=== PATIENT | male | born 1995 | race Hispanic/Latino ===

== ENCOUNTER 2024-11-17 19:39 | Emergency (ER) | payer BC ==
[~2024-11-17] VITALS: Ht 175.3 cm; Wt 70.3 kg
--- NOTE | 2024-11-17 20:28 | HMCIMG ---
PORTABLE CHEST RADIOGRAPH INDICATION: sob COMPARISON: None FINDINGS: Heart size is normal. The pulmonary vascularity and igor appear normal. No abnormal pulmonary parenchymal opacity or consolidation identified. No significant pleural effusion noted. No pneumothorax detected. IMPRESSION: No radiographic evidence for any acute cardiopulmonary process.
[2024-11-17 20:37] LABS: ADD UA MICROSCOPIC YES; APPEARANCE,URINE CLEAR (CLEAR); BILIRUBIN,URINE NEGATIVE (NEGATIVE); COLOR,URINE COLORLESS (YELLOW); GLUCOSE, URINE (UA) >=1000 mg/dL (NEGATIVE); KETONES,URINE 10 mg/dL (NEGATIVE); LEUKOCYTE ESTERASE ,URINE NEGATIVE Leu/uL (NEGATIVE); NITRATE,URINE NEGATIVE (NEGATIVE); OCCULT BLOOD,URINE NEGATIVE (NEGATIVE); PROTEIN,URINE NEGATIVE (NEGATIVE); UROBILINOGEN,URINE 0.2 mg/dL (0.2-1.0)
[2024-11-17 20:38] LABS: MUCUS,URINE RARE LPF (None Seen); SQUAMOUS EPITHELIAL CELL,UR RARE /HPF (0-2); YEAST,URINE BUDDING RARE /HPF (None Seen)
[2024-11-17 20:46] LABS: BASOPHILS # (AUTO) 0.03 K/uL (0.00-0.20); BASOPHILS % (AUTO) 0.4 % (0.0-5.0); EOSINOPHILS % (AUTO) 1.2 % (0.0-8.0); HEMATOCRIT 40.4 % (42-54); IMMATURE GRANULOCYTE ABSOLUTE 0.06 K/uL (0-1); LYMPHOCYTES # (AUTO) 3.5 K/uL (1.0-4.8); LYMPHOCYTES % (AUTO) 41.7 % (21.0-51.0); MEAN CORPUSCULAR HEMOGLOBIN 34.1 pg (27.0-33.0); MEAN CORPUSCULAR HGB CONC 34.4 g/dL (32.0-36.0); MONOCYTES # (AUTO) 0.9 K/uL (0.1-1.0); MONOCYTES % (AUTO) 10.9 % (3.0-13.0); NEUTROPHILS # (AUTO) 3.8 K/uL (1.8-7.7); NEUTROPHILS % (AUTO) 45.1 % (40.0-77.0); PLATELET COUNT (AUTO) 275 K/uL (130-400); RED BLOOD CELL COUNT(AUTO) 4.08 MIL/uL (4.50-6.20); RED CELL DISTRIBUTION WIDTH 12.1 % (11.0-15.5); WHITE BLOOD COUNT (AUTO) 8.4 K/uL (4.8-10.8)
[2024-11-17 20:51] LABS: CREATININE 0.7 mg/dL (0.5-1.3); POTASSIUM 4.2 mmol/L (3.5-5.1)
[2024-11-17 20:56] LABS: ALBUMIN 3.4 g/dL (3.5-5.0); BILIRUBIN,DIRECT 0.1 mg/dL (0.0-0.3); BILIRUBIN,TOTAL 0.3 mg/dL (0.2-1.0); TOTAL PROTEIN, SERUM 6.7 g/dL (6.0-8.3)
--- NOTE | 2024-11-17 21:19 | ERN ---
General Chief Complaint: Blood Sugar Problem Stated Complaint: DIABETES PROB Time Seen by MD: 19:40 Time Seen by Midlevel: 19:40 Source: patient History of Present Illness Initial Comments Patient is a 29-year-old male with a past medical history of type 1 diabetes presenting to the emergency department with hypoglycemia. Patient states he manage his diabetes with the long-acting insulin that he usually takes every night before bed and a short-acting insulin that he takes after meal was that for the last 2-3 days he has been eating healthier than usual. Today after his meal he injected normal amount of units usually does 25 units. Shortly after his glucose dropped to the 40s. He was given juice and candy at home but girlfriend decided to bring him in for further evaluation. Allergies: Coded Allergies: No Known Drug Allergies (Unverified Allergy, Unknown, 11/17/24) Past Medical History Past Medical History: Diabetes-Type II Past Surgical History: None ROS Dictation CONSTITUTIONAL: Negative except for HPI HEAD/FACE: Negative except for HPI EENT: Negative except for HPI RESPIRATORY: Negative except for HPI GASTROINTESTINAL/ABDOMINAL: Negative except for HPI GENITOURINARY: Negative except for HPI MUSCULOSKELETAL: Negative except for HPI INTEGUMENTARY: Negative except for HPI NEUROLOGICAL/PSYCH: Negative except for HPI HEMATOLOGIC/LYMPHATIC: Negative except for HPI All Systems Negative, Except as noted above. 13 point review of systems assessed and all negative except for above. Physical Exam Physical Exam Dictation Vital Signs reviewed General Appearance: Alert, oriented x 3, no acute distress, well developed, nourished. Head and Face: non-traumatic. Eyes: PERRL, pink conjunctivas, eyelid no trauma, anterior chamber with arcus senilis. Ears: Pinnas intact and no signs of trauma or erythema ear canals clear and no discharge TM no erythema Nose: No discharge, no bleeding. Oropharynx: Mouth normal, tongue pink, pharynx clear,no erythema, tonsils no exudates, no abscesses noted, mucous membrane moist Neck: Supple, non-tender, no thyromegaly, no masses, no JVD, no bruits Breast:Deferred Chest:No tenderness, no crepitus, no paradoxical movement, no retractions Lungs:Clear, well-ventilated, symmetric, no rales, no wheezing, no rhonchi, no stridor, good breath sounds bilaterally Heart: Regular rate, regular rhythm, no murmur, no gallops Vascular: no peripheral edema, Abdomen: Soft, positive bowel sounds, nondistended, no guarding, nontender, no rebound, no masses no hepatomegaly, no splenomegaly, no Fernando's sign, no hernias. Rectal: Deferred Genital: Deferred Neurological: Normal speech, motor function intact, sensory function intact Musculoskeletal: Neck nontender, full range of motion, back nontender, full r danny of motion, Extremities: nontender, full range of motion Skin: Color pink, dry, no turgor, no rash, no lacerations, no abrasions, no contusions. Lymphatic: Deferred Results Laboratory and Microbiology Lab and Micro Result Laboratory Tests Test 11/17/24 20:05 11/17/24 20:30 Urine Color COLORLESS (YELLOW) Urine Appearance CLEAR (CLEAR) Urine pH 7.0 (5.0-8.0) Urine Specific [place] 1.033 (1.001-1.031) Urine Protein NEGATIVE mg/dL (NEGATIVE) Urine Glucose (UA) >=1000 mg/dL (NEGATIVE) H Urine Ketones 10 mg/dL (NEGATIVE) H Urine Occult Blood NEGATIVE (NEGATIVE) Urine Nitrate NEGATIVE (NEGATIVE) Urine Bilirubin NEGATIVE mg/dL (NEGATIVE) Urine Urobilinogen 0.2 mg/dL (0.2-1.0) Urine Leukocyte Esterase NEGATIVE Ara/uL Urine RBC 2-5 /HPF (0-1) H Urine WBC 2-5 /HPF (0-1) H Urine Squamous Epithelial Cells RARE /HPF (0-2) Urine Bacteria None /HPF (None Seen) Urine Yeast RARE /HPF (None Seen) White Blood Count 8.4 K/uL (4.8-10.8) Red Blood Count 4.08 MIL/uL (4.50-6.20) L Hemoglobin 13.9 g/dL (14.0-18.0) L Hematocrit 40.4 % (42-54) L Mean Corpuscular Volume 99.0 fL (79-99) Mean Corpuscular Hemoglobin 34.1 pg (27.0-33.0) H Mean Corpuscular Hemoglobin Concent 34.4 g/dL (32.0-36.0) Red Cell Distribution Width 12.1 % (11.0-15.5) Platelet Count 275 K/uL (130-400) Mean Platelet Volume 9.0 fL (7.5-10.5) Immature Granulocyte % (Auto) 0.7 % (0-1) Neutrophils (%) (Auto) 45.1 % (40.0-77.0) Lymphocytes (%) (Auto) 41.7 % (21.0-51.0) Monocytes (%) (Auto) 10.9 % (3.0-13.0) Eosinophils (%) (Auto) 1.2 % (0.0-8.0) Basophils (%) (Auto) 0.4 % (0.0-5.0) Neutrophils # (Auto) 3.8 K/uL (1.8-7.7) Lymphocytes # (Auto) 3.5 K/uL (1.0-4.8) Monocytes # (Auto) 0.9 K/uL (0.1-1.0) Eosinophils # (Auto) 0.10 K/uL (0.00-0.70) Basophils # (Auto) 0.03 K/uL (0.00-0.20) Absolute Immature Granulocyte (auto 0.06 K/uL (0-1) Nucleated Red Blood Cells 0.0 % (0.0-0.19) Sodium Level 139 mmol/L (136-145) Potassium Level 4.2 mmol/L (3.5-5.1) Chloride Level 102 mmol/L (101-111) Carbon Dioxide Level 30 mmol/L (21-32) Blood Urea Nitrogen 20 mg/dL (7-18) H Creatinine 0.7 mg/dL (0.5-1.3) Glomerular Filtration Rate Calc 130 mL/min (>90) Random Glucose 104 mg/dL (70-105) Whole Blood Ketones Quantitative 0.5 mmol/L (0.0-0.6) Lactic Acid Level 1.7 mmol/L (0.8-2.5) Total Calcium 9.2 mg/dL (8.5-10.1) Total Bilirubin 0.3 mg/dL (0.2-1.0) Direct Bilirubin 0.1 mg/dL (0.0-0.3) Aspartate Amino Transf (AST/SGOT) 11 U/L (10-37) Alanine Aminotransferase (ALT/SGPT) 26 U/L (12-78) Alkaline Phosphatase 85 U/L (50-136) Total Creatine Kinase 75 U/L (21-232) Total Protein 6.7 g/dL (6.0-8.3) Albumin 3.4 g/dL (3.5-5.0) L Labs Reviewed?: Yes MDM MDM: Patient is a 29-year-old male with a past medical history of type 1 diabet es presenting to the emergency department with hypoglycemia. Patient states he manage his diabetes with the long-acting insulin that he usually takes every night before bed and a short-acting insulin that he takes after meal was that for the last 2-3 days he has been eating healthier than usual. Today after his meal he injected normal amount of units usually does 25 units. Shortly after his glucose dropped to the 40s. He was given juice and candy at home but girlfriend decided to bring him in for further evaluation. On physical examination patient is in no acute distress. He is neurologically intact. Fingerstick glucose on arrival is over 100. Patient has a glucose monitor sensor that is monitored on his phone. During my examination sugar trended up orellana in the 200s. His CBC shows no leukocytosis. His serum glucose in the emergency department was over 100. His bicarb was normal his gap is normal. His ketones are negative. Patient was not in DKA. Patient appears to have had a hypoglycemic event due to insulin administration. Patient states that since he has been eating healthier his sugars have been dropping a lot more after insulin administration. I advised that he needs to talk to his primary care doctor for possible medication adjustment Differential diagnosis: DKA, hypoglycemia, electrolyte abnormality, dehydration, There are no social concerns with this patient. Prescription drug management Prescriptions will include: None Medical management and examination interpretation discussions were had by me with other qualified healthcare professionals as indicated for the patient's care. ED Course Orders Procedure Category Date Status Time Cbc With Differential LAB 11/17/24 Complete 19:55 Basic Metabolic Panel LAB 11/17/24 Complete 19:55 Hepatic Function Panel LAB 11/17/24 Complete 19:55 Creatine Kinase, Total LAB 11/17/24 Complete 19:55 Ketone Blood LAB 11/17/24 Complete Quantitative 19:55 Lactic Acid LAB 11/17/24 Complete 19:55 Urinalysis Profile LAB 11/17/24 Complete 19:55 Chest 1vw RAD 11/17/24 Resulted 19:55 Vital Signs Date Time Temp Pulse Resp B/P (MAP) Pulse Ox O2 Delivery O2 Flow Rate FiO2 11/17/24 21:45 98.2 92 18 130/74 98 Room Air* 0 21 11/17/24 19:49 101 17 132/74 100 Room Air 0 DX & DISP Disposition: Discharge Departure Impression: Primary Impression: Hypoglycemia due to insulin Condition: Stable Additional Instructions: Your blood work today is unremarkable. Your glucose today was 104. . You are not in DKA. Your glucose levels dropped most likely because of the insulin you administered. Please follow up with your primary care doctor for possible medication adjustment. Return to the ER if you develop any new or worsening symptoms. Referrals: SELF,REFERRAL (PCP) Time of Disposition: 21:17 I have reviewed the case, and I agree with, Diagnosis and Plan I performed the substantive portion of the visit. I have reviewed and personally made and approve the management plan that is documented in the note by myself or the [facility]. I acknowledge for responsibility for the patient's management plan. JACQUELINE JUNG Nov 17, 2024 21:18
--- NOTE | 2024-11-17 21:38 | NUR ---
[employer] ASSISTANT MANAGER AIRSIDE OPERATIONS AND FAMILY TALKING WITH PATIENT.
[2024-11-17 21:45] VITALS: BP 130/74; PULSE 92; RESP 18; TEMP 98.2; O2SAT 98
== END 2024-11-17 21:46 | disposition home or self-care (01) ==
LOC: EDH 19:39
DX: E10.649 Type 1 diabetes mellitus with hypoglycemia without coma (principal); Z79.4 Long term (current) use of insulin
CPT/HCPCS: 36415; 71045; 80048; 80076; 81001; 82010; 82550; 83605; 85025; 99283